=== PATIENT | female | born 1930 | race African-American/Black ===

== ENCOUNTER 2018-01-15 02:55 | Inpatient (IN) | payer MEDICARE, MEDICAID ==
[~2018-01-15] VITALS: Ht 167.6 cm; Wt 63.5 kg
[2018-01-15] VITALS (7 sets, daily range): BP systolic 143–167; BP diastolic 70–92
[~2018-01-15 02:55] MED LIST: ACETAMINOP650 MG/20. PO; ARICEPT5 MG PO; COLACE250 MG PO; CYTOMEL25 MCG PO; FERROUS SULFAT325 MG PO; FUROSEMIDE40 MG PO; LEVAQUIN500 MG ORAL; LEVOTHYROXINE100 MCG GT; MAG-OX 400400 MG PO; MILK OF MA2400 MG/10 PO; MOM30 ML GT; POTASSIUM CHLO20 ME1 PO; PRILOSEC20 MG GT; QUETIAPINE FUMA25 MG GT; SYNTHROID125 MCG PO; TYLENOL EXTRA500 MG GT; TYLENOL325 MG GT; TYLENOL325 MG PO
[2018-01-15 03:56] LABS: HEMATOCRIT 44.6 % (37.0-47.0); HEMOGLOBIN 14.4 G/DL (12.0-16.0); MEAN CORPUSCULAR VOLUME 86 FL (80-99); PLATELET COUNT 177 K/UL (150-450); RED BLOOD COUNT 5.16 M/UL (4.20-5.40); RED CELL DISTRIBUTION WIDTH 13.6 % (11.6-14.8)
[2018-01-15 04:21] LABS: ALANINE AMINOTRANSFERASE 29 U/L (12-78); ALBUMIN 3.3 G/DL (3.4-5.0); ALBUMIN/GLOBULIN RATIO 0.8 (1.0-2.7); ALKALINE PHOSPHATASE 76 U/L (46-116); ANION GAP 16 mmol/L (5-15); ASPARTATE AMINO TRANSFERASE 39 U/L (15-37); BILIRUBIN,TOTAL 0.3 MG/DL (0.2-1.0); BLOOD UREA NITROGEN 23 mg/dL (7-18); CALCIUM 9.7 MG/DL (8.5-10.1); CARBON DIOXIDE 23 MMOL/L (21-32); CHLORIDE 103 MMOL/L (98-107); CREATINE KINASE 100 U/L (26-308); CREATININE 1.5 MG/DL (0.55-1.30); SODIUM 142 MMOL/L (136-145)
[2018-01-15 04:23] LABS: POTASSIUM 2.4 MMOL/L (3.5-5.1)
[2018-01-15] MEDS ORDERED: Potassium Chloride 10 MEQ in NS 110 ML IVPB SCH (05:30)
--- NOTE | 2018-01-15 06:04 | Emergency Room Report ---
History of Present Illness General Chief Complaint: Vomiting Source: Medical Record, EMS Present Illness HPI Patient was sent in by nursing facility with reports of vomiting there was apparently report of one episode of vomiting However fairly violent per the nursing reports No reports of diarrhea patient is G-tube fed Otherwise no verbal History of present illness is significantly limited Unknown regarding fever No other reports of rash no other change in medications Allergies: Coded Allergies: No Known Allergies (Unverified , 12/22/12) Patient History Past Medical History: see triage record Pertinent Family History: unable to obtain Now: No Reviewed Nursing Documentation: PMH: Agreed, PSxH: Agreed Nursing Documentation-PMH Past Medical History: No History, Except For Hx Hypertension: Yes - Anemia, IN, Encephalopathy Hx Pacemaker: No - G-TUBE Hx Cancer: No Hx Gastrointestinal Problems: Yes - GERD Hx Neurological Problems: No - Failure to thrive Hx Cerebrovascular Accident: Yes - Left-side deficit Hx Dementia: Yes Hx Seizures: Yes Hx Epilepsy: Yes Hx Paralysis: Yes - HEMIPLEGIA Hx Speech Problem: Yes - DYSPHAGIA FOLLOWING UNSPECIFIED Hx Dysphasia: Yes Review of Systems All Other Systems: limited - Other than the ones mentioned in the history of present illness all others are reviewed however they do stay limited due to the patient's mental status Physical Exam Vital Signs Date Time Temp Pulse Resp B/P (MAP) Pulse Ox O2 Delivery O2 Flow Rate FiO2 01/15/18 02:50 97.6 75 16 161/87 96 Room Air 97.5 Sp02 EP Interpretation: reviewed, normal General Appearance: well appearing, no apparent distress Head: normocephalic, atraumatic Eyes: bilateral eye PERRL ENT: dry mucus membranes Neck: supple, thyroid normal Respiratory: lungs clear, normal breath sounds Cardiovascular #1: normal peripheral pulses, regular rate, rhythm, no edema Gastrointestinal: non tender, soft, other - Feeding tube in place Genitourinary: no CVA tenderness Musculoskeletal: other - Patient has no follow commands, moves both upper extremities towards the physical stimuli Neurologic: responsive - Responsive and awake Skin: normal color, no rash, warm/dry Lymphatic: no adenopathy Medical Decision Making Diagnostic Impression: Primary Impression: Vomiting Additional Impressions: Hypokalemia Renal insufficiency ER Course With the history exam and presentation, multiple differentials considered, including but not limited to appendicitis, gastritis, cholecystitis, diverticulitis Patient's CT does not reveal any obvious acute pathology There are some signs of reflux Patient's potassium however significantly low This is replaced And the patient will require further inpatient care Labs Test 01/15/18 03:53 White Blood Count 14.0 K/UL (4.8-10.8) Red Blood Count 5.16 M/UL (4.20-5.40) Hemoglobin 14.4 G/DL (12.0-16.0) Hematocrit 44.6 % (37.0-47.0) Mean Corpuscular Volume 86 FL (80-99) Mean Corpuscular Hemoglobin 27.9 PG (27.0-31.0) Mean Corpuscular Hemoglobin Concent 32.3 G/DL (32.0-36.0) Red Cell Distribution Width 13.6 % (11.6-14.8) Platelet Count 177 K/UL (150-450) Mean Platelet Volume 9.7 FL (6.5-10.1) Neutrophils (%) (Auto) % (45.0-75.0) Lymphocytes (%) (Auto) % (20.0-45.0) Monocytes (%) (Auto) % (1.0-10.0) Eosinophils (%) (Auto) % (0.0-3.0) Basophils (%) (Auto) % (0.0-2.0) Sodium Level 142 MMOL/L (136-145) Potassium Level 2.4 MMOL/L (3.5-5.1) Chloride Level 103 MMOL/L (98-107) Carbon Dioxide Level 23 MMOL/L (21-32) Anion Gap 16 mmol/L (5-15) Blood Urea Nitrogen 23 mg/dL (7-18) Creatinine 1.5 MG/DL (0.55-1.30) Estimat Glomerular Filtration Rate mL/min (>60) Glucose Level 256 MG/DL (74-106) Calcium Level 9.7 MG/DL (8.5-10.1) Total Bilirubin 0.3 MG/DL (0.2-1.0) Aspartate Amino Transf (AST/SGOT) 39 U/L (15-37) Alanine Aminotransferase (ALT/SGPT) 29 U/L (12-78) Alkaline Phosphatase 76 U/L (46-116) Total Creatine Kinase 100 U/L (26-308) Creatine Kinase MB 1.0 NG/ML (0.0-3.6) Creatine Kinase MB Relative Index 1.0 Troponin I 0.000 ng/mL (0.000-0.056) Total Protein 7.6 G/DL (6.4-8.2) Albumin 3.3 G/DL (3.4-5.0) Globulin 4.3 g/dL Albumin/Globulin Ratio 0.8 (1.0-2.7) Lipase 145 U/L (73-393) Rhythm Strip Diag. Results EP Interpretation: yes Rate: 66 Rhythm: NSR, no PVC's, no ectopy Chest X-Ray Diagnostic Results Chest X-Ray Diagnostic Results : Chest X-Ray Ordered: Yes # of Views/Limited/Complete: 1 View Indication: Chest Pain EP Interpretation: Yes Interpretation: no consolidation, no pneumothorax, other - Interstitial disease appearance, abnormal cardiac aortic contour no obvious focal infiltrate Impression: No acute disease CT/MRI/US Diagnostic Results CT/MRI/US Diagnostic Results : Impression CT abdomen pelvis:Gastrostomy tube in place, with the balloon tip in the gastric lumen. Enteric contrast extends into the ascending colon. No evidence of small bowel or colonic obstruction. There is enteric contrast opacification of the esophagus, likely due to gastroesophageal reflux. Questionable mild distal bowel wall thickening versus under distention. Low- grade infectious/inflammatory versus ischemic enteritis not excluded. Please correlate with patient lactate levels. No evidence of pneumatosis. No free intra-abdominal air or fluid. No evidence of acute obstructive uropathy. Severe atherosclerotic calcification of the abdominal aorta, without aneurysmal dilatation. There is also severe atherosclerotic calcification of the major aortic branch vessels, including the mesenteric arteries. 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 No adnexal lesions. There is severe atherosclerotic calcification of the coronary arteries. No pericardial effusion. Mild bibasilar atelectasis/scarring. No pleural effusions or basilar consolidation. Last Vital Signs Date Time Temp Pulse Resp B/P (MAP) Pulse Ox O2 Delivery O2 Flow Rate FiO2 01/15/18 03:04 97.5 88 16 161/87 96 Room Air 97.5 Status: improved Disposition: ADMITTED INPATIENT Condition: Serious Referrals: THEO NIELSEN (PCP) SAMANTHA LY D.O. Jan 15, 2018 06:04
[2018-01-15] MEDS ORDERED: AMBIEN5 MG ORAL (06:16)
[2018-01-15] MEDS ORDERED: Milk of Magnesia 30ml Ud GT PRN (08:00)
[2018-01-15] MEDS ORDERED: Zolpidem 5mg tab ORAL PRN (08:00)
[2018-01-15] MEDS ORDERED: Potassium Chloride 10 MEQ in D5 1/2NS 1,000 ML IV SCH (09:00)
--- NOTE | 2018-01-15 09:02 | Diagnostic Imaging Report ---
Indication: Abdominal pain Technique: Continuous helical transaxial imaging of the abdomen and pelvis was obtained from the lung bases to the pubic symphysis. No intravenous contrast was administered. Coronal 2-D reformats were also obtained. Automatic Exposure Control was utilized. Total Dose length Product (DLP): 820.[address] Dose Index Volume (CTDIvol): 15.23 mGy Comparison: none Findings: There is posterior basilar atelectasis. Heart and trace pericardial fluid demonstrated. Moderate calcification of the coronary arteries and aorta demonstrated. There is distention and contrast are noted within the distal esophagus which may be due to reflux or other pathology. There is a gastrostomy tube present in good position with the balloon in the body of the stomach. There is dilatation of the right common iliac artery which measures up to about 2.3 cm. There is no aneurysm of aorta identified. Atrophic uterus noted. Urinary bladder is nondistended. Mild distention of the rectum due to feces noted. Probable cyst 3 cm left kidney. Mid lumbar spine surgery at L2-3 demonstrated with evidence of laminectomy. Severe disc narrowing at this level with moderate anterolisthesis noted. Multilevel hypertrophied facets and generalized osteopenia demonstrated. IMPRESSION: No acute findings appreciated. Dilated distal esophagus with evidence of reflux. 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 Moderate to severe atherosclerotic disease. Trace pericardial effusion. Feces distending the rectum. L2-3 laminectomy. Moderate anterolisthesis. Other incidental findings as above [facility] has communicated the preliminary results to the Emergency Department. Their findings are largely concordant with this report. IMPRESSION: The CT scanner at [facility] is accredited by the [employer] and the scans are performed using dose optimization techniques as appropriate to a performed exam including Automatic Exposure control.
[2018-01-15] MEDS: D5 1/2NS w/KCL 10meq 1,000 ML IV SCH ×2 (10:01→23:34)
[2018-01-15] MEDS: Heparin 5000 units/ml inj SUBQ SCH ×2 (10:02→20:48)
--- NOTE | 2018-01-15 11:52 | Diagnostic Imaging Report ---
Indication: Dyspnea Comparison: 05/02/2016 A single view chest radiograph was obtained. Findings: There is enlargement of the cardiac silhouette with pulmonary vascular redistribution and prominence, hazy vessel margins and the suggestion of interstitial edema consistent with CHF. The bones are osteopenic. The aorta is moderately ectatic. IMPRESSION: Congestive heart failure
--- NOTE | 2018-01-15 15:30 | History and Physical Report ---
DATE OF ADMISSION: 01/15/2018 CHIEF COMPLAINT: Intractable nausea and vomiting, dehydration, acute renal failure. HISTORY OF PRESENT ILLNESS: The patient is an unfortunate 87-year-old female. She has a history of dementia, stroke, hypothyroidism, ischemic cardiomyopathy, GERD, insomnia, and seizure disorder who was transferred from a correction facility with complaints of vomiting. On evaluation in the emergency room, the patient had a CAT scan of the abdomen that showed no evidence of any obstruction. She does have a G-tube, has been on feedings. The patient is awake and alert. She appears in no distress. Denies any abdominal pain. It is unclear whether or not she has been having bowel movements or not or having any diarrhea. Laboratories were significant for potassium of 2.4, the BUN was elevated at 23 as well as creatinine of 1.5. Liver function was unremarkable and the lipase was normal. The patient is now admitted for further evaluation and care. PAST MEDICAL HISTORY: As above. PAST SURGICAL HISTORY: Includes a G-tube. CURRENT MEDICATIONS: Reconciled and reviewed. ALLERGIES: None. FAMILY HISTORY: Unknown. SOCIAL HISTORY: There is no known history of tobacco, ethanol, or drugs. REVIEW OF SYSTEMS: From the patient is unobtainable as the patient is minimally verbal. PHYSICAL EXAMINATION: VITAL SIGNS: Temperature 97.5, pulse 76, respirations 18, and blood pressure 164/86. GENERAL: The patient is well-developed, no apparent distress. HEART: Regular rate and rhythm. LUNGS: Clear. ABDOMEN: Soft, nontender, nondistended. Normoactive bowel sounds. EXTREMITIES: Without clubbing, cyanosis, or edema. LABORATORY DATA: Sodium 142, potassium 2.4, chloride 103, bicarbonate 23, BUN 23, creatinine 1.5. White count was 14,000. Urinalysis results are pending. ASSESSMENT: This is a pleasant female admitted with complaints of intractable nausea and vomitin. Intractable nausea and vomiting. 2. Acute renal failure secondary to dehydration and vomiting. 3. Hypokalemia. 4. Stroke. 5. History of seizure disorder. 6. Hypothyroidism. PLAN: IV hydration. Check urinalysis. Monitor white count. Replace potassium. Antiemetics. We will resume G-tube feeds. Monitor for residuals and for vomiting. Carroll Heaton M.D. DR: EMMANUELLE JOB#: [id number] CC:
[2018-01-16] VITALS: BP 148/86
[2018-01-16 01:02] LABS: APPEARANCE,URINE CLEAR; BILIRUBIN, URINE NEGATIVE (NEGATIVE); COLOR,URINE PALE YELLOW; GLUCOSE, URINE (UA) NEGATIVE (NEGATIVE); KETONES,URINE NEGATIVE (NEGATIVE); LEUKOCYTE ESTERASE ,URINE NEGATIVE (NEGATIVE); NITRITE,URINE NEGATIVE (NEGATIVE); PH,URINE 7 (4.5-8.0); PROTEIN,URINE 2+ (NEGATIVE); UROBILINOGEN,URINE NORMAL MG/DL (0.0-1.0)
[2018-01-16 04:00] VITALS: BP 147/86
[2018-01-16 07:32] LABS: ALANINE AMINOTRANSFERASE 27 U/L (12-78); ALBUMIN 2.9 G/DL (3.4-5.0); ALBUMIN/GLOBULIN RATIO 0.7 (1.0-2.7); ALKALINE PHOSPHATASE 74 U/L (46-116); ANION GAP 8 mmol/L (5-15); ASPARTATE AMINO TRANSFERASE 43 U/L (15-37); BILIRUBIN,TOTAL 0.3 MG/DL (0.2-1.0); BLOOD UREA NITROGEN 14 mg/dL (7-18); CALCIUM 9.3 MG/DL (8.5-10.1); CARBON DIOXIDE 28 MMOL/L (21-32); CHLORIDE 102 MMOL/L (98-107); POTASSIUM 3.9 MMOL/L (3.5-5.1); SODIUM 138 MMOL/L (136-145)
[2018-01-16] MEDS: Heparin 5000 units/ml inj SUBQ SCH ×2 (08:17→20:24)
--- NOTE | 2018-01-16 08:48 | General Progress Note ---
Assessment/Plan Problem List: (1) Dehydration ICD Codes: E86.0 - Dehydration SNOMED: 78554983 (2) Altered mental status ICD Codes: R41.82 - Altered mental status, unspecified SNOMED: 656849878 (3) Acute renal failure ICD Codes: N17.9 - Acute kidney failure, unspecified SNOMED: 44478203 (4) Altered level of consciousness ICD Codes: R40.4 - Transient alteration of awareness SNOMED: 5778071 (5) Renal insufficiency ICD Codes: N28.9 - Disorder of kidney and ureter, unspecified SNOMED: 505745672, 696632260 (6) Vomiting ICD Codes: R11.10 - Vomiting, unspecified SNOMED: 330700200, 733674539 (7) Hypokalemia ICD Codes: E87.6 - Hypokalemia SNOMED: 59900087, 359048047 Status: stable, progressing Assessment/Plan cont hydration monitor for vomiting tube feeds sz rx increase synthroid Subjective ROS Limited/Unobtainable: Yes Constitutional: Reports: malaise, weakness HEENT: Reports: no symptoms Cardiovascular: Reports: no symptoms Respiratory: Reports: no symptoms Gastrointestinal/Abdominal: Reports: no symptoms Genitourinary: Reports: no symptoms Neurologic/Psychiatric: Reports: pre-existing deficit Endocrine: Reports: no symptoms Hematologic/Lymphatic: Reports: no symptoms Allergies: Coded Allergies: No Known Allergies (Unverified , 12/22/12) All Systems: reviewed and negative except above Subjective no events. no vomiting. las reviewed. elevated tsh noted. Objective Last 24 Hour Vital Signs Date Time Temp Pulse Resp B/P (MAP) Pulse Ox O2 Delivery O2 Flow Rate FiO2 01/16/18 04:00 97.3 20 147/86 97 97.3 01/16/18 00:00 97.7 87 18 148/86 98 97.7 01/15/18 20:56 167/92 01/15/18 20:00 97.8 92 20 167/92 97 97.8 01/15/18 16:15 97.8 61 18 150/92 98 Room Air 97.8 01/15/18 09:00 97.6 88 19 143/79 97 97.6 Intake and Output 01/15/18 01/16/18 19:00 07:00 Intake Total 820 ml 1240 ml Balance 820 ml 1240 ml Free Water 60 ml 120 ml IV Total 600 ml 900 ml Tube Feeding 160 ml 220 ml # Voids 3 Laboratory Tests 01/15/18 23:50: Urine Color Pale yellow, Urine Appearance Clear, Urine pH 7, Urine Specific [place] 1.010, Urine Protein 2+H, Urine Glucose (UA) Negative, Urine Ketones Negative, Urine Occult Blood 2+H, Urine Nitrite Negative, Urine Bilirubin Negative, Urine Urobilinogen Normal, Urine Leukocyte Esterase Negative, Urine RBC 5-10H, Urine WBC 2-4, Urine Squamous Epithelial Cells None, Urine Bacteria None 01/16/18 05:55: Sodium Level 138, Potassium Level 3.9#, Chloride Level 102, Carbon Dioxide Level 28, Anion Gap 8, Blood Urea Nitrogen 14, Creatinine 1.0, Estimat Glomerular Filtration Rate , Glucose Level 205H, Calcium Level 9.3, Total Bilirubin 0.3, Aspartate Amino Transf (AST/SGOT) 43H, Alanine Aminotransferase ( ALT/SGPT) 27, Alkaline Phosphatase 74, Total Protein 7.1, Albumin 2.9L, Globulin 4.2, Albumin/Globulin Ratio 0.7L, Thyroid Stimulating Hormone (TSH) 69.650H Height (Feet): 5 Height (Inches): 6.00 Weight (Pounds): 140 General Appearance: WD/WN, alert Neck: supple Cardiovascular: regular rhythm Respiratory/Chest: lungs clear, normal breath sounds Abdomen: normal bowel sounds, non tender, soft, no organomegaly Edema: no edema noted Arm (L), no edema noted Arm (R), no edema noted Leg (L), no edema noted Leg (R), no edema noted Pedal (L), no edema noted Pedal (R), no edema noted Generalized INDIO VILLAFUERTE Jan 16, 2018 08:47
[2018-01-16 09:00] VITALS: BP 141/81
[2018-01-16] MEDS: D5 1/2NS w/KCL 10meq 1,000 ML IV SCH ×2 (10:13→17:44)
[2018-01-16 15:45] VITALS: BP 133/77
[2018-01-16 20:00] VITALS: BP 144/76
[2018-01-17] VITALS: BP 128/83
[2018-01-17 04:00] VITALS: BP 119/77
[2018-01-17 08:05] VITALS: BP 134/68
--- NOTE | 2018-01-17 08:39 | General Progress Note ---
Assessment/Plan Problem List: (1) Dehydration ICD Codes: E86.0 - Dehydration SNOMED: 95052815 (2) Altered mental status ICD Codes: R41.82 - Altered mental status, unspecified SNOMED: 665988852 (3) Acute renal failure ICD Codes: N17.9 - Acute kidney failure, unspecified SNOMED: 59883206 (4) Altered level of consciousness ICD Codes: R40.4 - Transient alteration of awareness SNOMED: 4635867 (5) Renal insufficiency ICD Codes: N28.9 - Disorder of kidney and ureter, unspecified SNOMED: 165220635, 329018309 (6) Vomiting ICD Codes: R11.10 - Vomiting, unspecified SNOMED: 647276412, 168813125 (7) Hypokalemia ICD Codes: E87.6 - Hypokalemia SNOMED: 74086988, 862896598 Status: stable, progressing Assessment/Plan cont hydration monitor for vomiting tube feeds sz rx thyroid replacement dc planning tomorrow Subjective ROS Limited/Unobtainable: No Constitutional: Reports: malaise, weakness HEENT: Reports: no symptoms Cardiovascular: Reports: no symptoms Respiratory: Reports: no symptoms Gastrointestinal/Abdominal: Reports: nausea, vomiting Genitourinary: Reports: no symptoms Neurologic/Psychiatric: Reports: pre-existing deficit Endocrine: Reports: no symptoms Hematologic/Lymphatic: Reports: no symptoms Allergies: Coded Allergies: No Known Allergies (Unverified , 12/22/12) All Systems: reviewed and negative except above Subjective no events. no vomiting. tolerating feeds. Objective Last 24 Hour Vital Signs Date Time Temp Pulse Resp B/P (MAP) Pulse Ox O2 Delivery O2 Flow Rate FiO2 01/17/18 08:05 98.6 76 19 134/68 98 Room Air 98.6 01/17/18 04:00 98.6 86 18 119/77 95 98.6 01/17/18 00:00 98.1 93 20 128/83 96 98.1 01/16/18 20:00 97.9 89 20 144/76 98 97.9 01/16/18 15:45 98.1 80 21 133/77 99 Room Air 98.1 01/16/18 09:00 97.3 87 18 141/81 96 97.3 Intake and Output 01/16/18 01/17/18 19:00 07:00 Intake Total 955 ml 1200 ml Balance 955 ml 1200 ml Free Water 180 ml 60 ml IV Total 400 ml 600 ml Tube Feeding 375 ml 540 ml # Voids 1 Height (Feet): 5 Height (Inches): 6.00 Weight (Pounds): 140 General Appearance: WD/WN, alert, confused Neck: supple Cardiovascular: regular rhythm Respiratory/Chest: chest wall non-tender, lungs clear, normal breath sounds Abdomen: normal bowel sounds, non tender, soft, no organomegaly Edema: no edema noted Arm (L), no edema noted Arm (R), no edema noted Leg (L), no edema noted Leg (R), no edema noted Pedal (L), no edema noted Pedal (R), no edema noted Generalized Neurologic: alert, responsive, disoriented INDIO VILLAFUERTE Jan 17, 2018 08:39
[2018-01-17 08:52] LABS: BASOPHILS % (AUTO) 0.9 % (0.0-2.0); EOSINOPHILS % (AUTO) 1.8 % (0.0-3.0); HEMATOCRIT 43.3 % (37.0-47.0); HEMOGLOBIN 14.1 G/DL (12.0-16.0); LYMPHOCYTES % (AUTO) 19.6 % (20.0-45.0); MEAN CORPUSCULAR VOLUME 86 FL (80-99); MONOCYTES % (AUTO) 11.2 % (1.0-10.0); NEUTROPHILS % (AUTO) 66.4 % (45.0-75.0); PLATELET COUNT 106 K/UL (150-450); RED BLOOD COUNT 5.04 M/UL (4.20-5.40); WHITE BLOOD COUNT 6.2 K/UL (4.8-10.8)
[2018-01-17] MEDS: Heparin 5000 units/ml inj SUBQ SCH ×2 (09:00→20:23)
[2018-01-17 09:13] LABS: ALANINE AMINOTRANSFERASE 23 U/L (12-78); ALBUMIN 2.8 G/DL (3.4-5.0); ALBUMIN/GLOBULIN RATIO 0.7 (1.0-2.7); ALKALINE PHOSPHATASE 67 U/L (46-116); ANION GAP 6 mmol/L (5-15); ASPARTATE AMINO TRANSFERASE 26 U/L (15-37); BILIRUBIN,TOTAL 0.4 MG/DL (0.2-1.0); BLOOD UREA NITROGEN 15 mg/dL (7-18); CALCIUM 9.2 MG/DL (8.5-10.1); CARBON DIOXIDE 28 MMOL/L (21-32); CHLORIDE 105 MMOL/L (98-107); CREATININE 0.9 MG/DL (0.55-1.30); POTASSIUM 3.6 MMOL/L (3.5-5.1); SODIUM 139 MMOL/L (136-145)
[2018-01-17 11:50] VITALS: BP 119/69
[2018-01-17 16:00] VITALS: BP 148/91
[2018-01-17] MEDS: D5 1/2NS w/KCL 10meq 1,000 ML IV SCH (16:11)
[2018-01-17 20:00] VITALS: BP 157/77
--- NOTE | 2018-01-17 20:12 | Cardiology Report ---
APPROVED REPORT EKG Measurement Heart [id number] P55 [id number] Sinus rhythm with frequent VPCs. Inferior infarct, age undetermined Abnormal ECG
[2018-01-18] VITALS: BP 130/86
[2018-01-18] MEDS: D5 1/2NS w/KCL 10meq 1,000 ML IV SCH (02:45)
[2018-01-18 04:00] VITALS: BP 136/80
[2018-01-18 08:00] VITALS: BP 148/85
[2018-01-18] MEDS: Heparin 5000 units/ml inj SUBQ SCH (09:00)
[2018-01-18] MEDS ORDERED: LEVOTHYROXINE150 MCG GT (09:31)
[2018-01-18 12:00] VITALS: BP 149/67
--- NOTE | 2018-01-19 05:30 | Discharge Summary ---
DATE OF ADMISSION: 01/15/2018 DATE OF DISCHARGE: 01/18/2018 ADMISSION DIAGNOSES: 1. Intractable nausea and vomiting. 2. Dehydration. 3. Acute renal failure. 4. Toxic metabolic encephalopathy. 5. Severe hypothyroidism. DISCHARGE DIAGNOSES: 1. Intractable nausea and vomiting. 2. Dehydration. 3. Acute renal failure. 4. Toxic metabolic encephalopathy. 5. Severe hypothyroidism. HOSPITAL COURSE: The patient is a pleasant female with complaints of nausea and vomiting. She is on G-tube feeds and had multiple episodes of vomiting. She was admitted with dehydration, acute renal failure, toxic metabolic encephalopathy. She was found to be markedly hypothyroid in addition. She received IV fluids, antiemetics. G-tube feeds were slowly resumed. On discharge, she was doing well. Her thyroid medications were also increased because of elevated TSH. On discharge, she was stable. DISCHARGE MEDICATIONS: Please see discharge medication list for discharge medications. DIET: tube feed. ACTIVITIES: Ad-catherine. FOLLOWUP: The patient to be followed by her PMD at alf facility. Carroll Heaton M.D. DR: Katlyn JOB#: [id number] CC:
== END 2018-01-18 12:35 | DRG 682 ==
LOC: EDBD 02:55 → EMR 04:15 → 4E 04:48 → EDBEDREQ 05:03
DX: N17.9 Acute kidney failure, unspecified (principal); G92 Toxic encephalopathy; I69.354 Hemiplegia and hemiparesis following cerebral infarction affecting left non-dominant side; E86.0 Dehydration; Z43.1 Encounter for attention to gastrostomy; E87.6 Hypokalemia; R41.82 Altered mental status, unspecified; R11.2 Nausea with vomiting, unspecified; E03.9 Hypothyroidism, unspecified; I25.2 Old myocardial infarction; G40.909 Epilepsy, unspecified, not intractable, without status epilepticus; R13.10 Dysphagia, unspecified
CPT/HCPCS: 36415; 71045; 74176; 80053; 81003; 82550; 82553; 83690; 84443; 84484; 85025; 87040; 87081; 93005; 99285; J2405; J8499